=== PATIENT | female | born 1980 | race Caucasian/White ===

== ENCOUNTER → 2020-10-25 01:47 | Outpatient (CLI) | payer BC, SELFPAY ==
[2020-10-25 20:23] LABS: SARS-CoV-2 RNA PCR Negative
== END ==
PROVIDERS: PCP Family Medicine; Visit Provider Obstetrics & Gynecology
DX: Z01.812 Encounter for preprocedural laboratory examination (principal); Z20.822 Contact with and (suspected) exposure to COVID-19
CPT/HCPCS: C9803; U0003; U0005

== ENCOUNTER 2020-10-27 10:16 | Outpatient (CLI) | payer BC, SELFPAY ==
--- NOTE | 2020-10-27 10:22 | ECG_ITS ---
Measurements Intervals [place] Rate: 62 P: 33 FL: 123 QRS: 55 QRSD: 81 T: 22 QT: 409 QTc: 416 Interpretive Statements SINUS RHYTHM BASELINE ARTIFACT- I, II, III, AVR, AVL, AVF, V1-V6 NORMAL ECG Electronically Signed On 10-27-2020 10:39:42 CDT by Bautista Green D.O.
[2020-10-27 11:06] LABS: Anion Gap 6 mmol/L (8-16); Blood Urea Nitrogen 16 mg/dL (7-17); Calcium 8.9 mg/dL (8.4-10.2); Carbon Dioxide 31 mmol/L (22-30); Chloride 101 mmol/L (98-107); Estimated Glomerular Filt Rate > 60; Glucose 83 mg/dL (65-105); Potassium 3.8 mmol/L (3.4-5.0); Sodium 138 mmol/L (137-145)
== END 2020-10-27 10:17 | disposition home or self-care (01) ==
LOC: ANHSURGERY 10:19
PROVIDERS: Anesthesiology; PCP Family Medicine; Visit Provider Obstetrics & Gynecology
DX: E78.00 Pure hypercholesterolemia, unspecified (principal); I10 Essential (primary) hypertension; Z79.899 Other long term (current) drug therapy; Z01.818 Encounter for other preprocedural examination
CPT/HCPCS: 36415; 80048; 93005

== ENCOUNTER 2020-10-29 00:29 | Day surgery (SDC) | payer BC, SELFPAY ==
[2020-10-20 15:05] VITALS: BMI 19.5
--- NOTE | 2020-10-28 15:40 | WPDANESEPPF ---
Anes - Initial Pre Proc Eval Procedure: Operation Date: 10/29/20 12:00 Proposed Procedures p Laparoscopic Bilateral Tubal Sterilization with Fallopian Rings, - Cristiano Miller MD s Hysteroscopy, Dilation and Curettage with Ronda Ablation, Removal Intra Uterine Device - Cristiano Miller MD Date/Time: 10/28/20 15:40 Surgeon: Cristiano Miller MD Pre Op Diagnosis: desires sterilization, irregular bleeding, dysmeno Patient Data Age: 40 Gender: F Height: 1.52 m Weight: 45.3 kg Allergies Allergy/AdvReac Type Severity Reaction Status Date / Time Sulfa (Sulfonamide Allergy Intermediate Nausea and Verified 10/20/20 15:04 Antibiotics) Vomiting Home Medications Medication Instructions Recorded Confirmed Type escitalopram oxalate 20 mg PO DAILY 10/20/20 10/20/20 History hydrochlorothiazide 25 mg PO DAILY 10/20/20 10/20/20 History simvastatin 20 mg PO DAILY 10/20/20 10/20/20 History Patient hx anesthesia problems: none Family hx anesthesia problems: none REPLACED BY [facility] Past Medical History Medical History (Updated 10/28/20 @ 15:40 by Beau Hopkins MD) Anxiety HTN (hypertension) Hypercholesterolemia Social History Social History Smoking status: Never smoker Alcohol intake: current Alcohol use details: SOCIAL - ONCE/MONTH Substance use: never Substance use type: does not use Living arrangements: with family Spiritual care concerns: No Anes - Eval Final PreProcedure Day of Procedure 10/28/20 15:40 Patient weight: normal Heart: regular rate and rhythm Lungs: clear to auscultation and normal air movement Airway: Mallampati scale class II Neurological: alert and oriented Last oral intake: >/= 8 hours ASA classification: II Emergent: no Anesthetic plan: proceed Anesthesia type and monitoring: general ETT Informed Consent: The patient's anesthetic plan and its attendant risks and benefits were discussed with the patient/family/POA. Questions were solicited and answers provided to the satisfaction of the patient/family/POA.
[2020-10-29] VITALS (7 sets, daily range): BP systolic 99–121; BP diastolic 67–86; PULSE 61–68; RESP 12–18; TEMP 36.4–37.2; O2SAT 100
[2020-10-29] MEDS: LACTATED RINGERS 1,000 ML 30 ML IV CONT ×2 (11:05→13:39)
[2020-10-29] MEDS: ACETAMINOPHEN 500 MG TABLET 1000 MG PO (11:06)
[2020-10-29] MEDS: KETOROLAC 15 MG/ML VIAL (*BKC) IV PUSH (11:06)
--- NOTE | 2020-10-29 12:20 | PM.IMHP ---
H&P: HPI History of Present Illness Date/Time: 10/29/20 12:20 40 y/o with a Mirena IUD. She desires permanent contraception as well as surgical treatment of her dysmenorrhea. Chief Complaint: Here for surgery Review of Systems Review of Systems: All systems reviewed & are unremarkable except as noted in HPI and below PMFSH Past Medical History Medical History Anxiety HTN (hypertension) Hypercholesterolemia Social History Social History Smoking status: Never smoker Alcohol intake: current Alcohol use details: SOCIAL - ONCE/MONTH Substance use: never Substance use type: does not use Living arrangements: with family Spiritual care concerns: No Meds Home Medications and Allergies Home Medications Medication Instructions Recorded Confirmed Type escitalopram oxalate 20 mg PO DAILY 10/20/20 10/29/20 History hydrochlorothiazide 25 mg PO DAILY 10/20/20 10/20/20 History simvastatin 20 mg PO DAILY 10/20/20 10/20/20 History Allergies Allergy/AdvReac Type Severity Reaction Status Date / Time Sulfa (Sulfonamide Allergy Intermediate Nausea and Verified 10/29/20 11:22 Antibiotics) Vomiting Vital Signs Vital Signs - 24 hr 10/29/20 11:25 Temperature 37.2 C Pulse Rate 65 Respiratory Rate 18 Blood Pressure 112/83 Pulse Oximetry 100 Exam Const: Orientation/consciousness: patient oriented x3 Other: Well-developed, well-nourished female in no acute distress. Neck: Thyroid: thyroid normal Lymphatic: no lymphadenopathy noted (in neck, axilla or inguinal nodes) Resp: Effort & Inspection: normal respiratory effort Auscultation: clear to auscultation bilaterally Cardio: Rate: regular rate Rhythm: regular rhythm Heart sounds: S1 normal heart sound present and S2 normal heart sound present GI: Other: ABD: Soft, nontender, nondistended. No guarding or rebound tenderness. No hepatosplenomegaly. : General: Yes no CVA tenderness Other: External genitalia: normal female hair distribution, without lesion. Urethral meatus: no lesion, non prolapsed. Bladder: no mass, nontender Vagina: well-estrogenized, without lesion or discharge. No cystocele or rectocele. Cervix: no lesion or discharge. Uterus: small, anteverted, freely mobile, nontender Adnexa: no mass or tenderness. Anus/perineum: no lesions, nontender Back/Spine/Pelvis: Back: no CVA tenderness Skin: General skin exam: normal color and no rashes or lesions noted Neuro: General: patient oriented x3 Extrem: Other: Extremities: nontender with no edema Psych: Mental Status: mental status grossly normal Affect: normal affect Assessment and Plan Assessment and plan (1) Dysmenorrhea: Code(s): N94.6 - Dysmenorrhea, unspecified Status: Acute Assessment and Plan: A: Dysmenorrhea, desired sterility. P: She understands there are temporary methods of contraception available to her. She understands that there are nonsurgical options as well as surgical options. She understands that tubal ligation will render her permanently sterile. She understands that there is a failure rate associated with tubal ligation, as well as an inherent ectopic gestation risk. Furthermore, she understands risks of surgery to include risks of anesthesia, risks of pain, infection, bleeding, blood products, thromboembolic phenomena and damage to adjacent structures such as bowel, bladder, ureters, blood vessels and nerves. She understands all these risks and elects to proceed with laparoscopic bilateral tubal ligation, removal of IUD, hysteroscopy, dilation and sharp curettage, and endometrial ablation. She has received the ACOG pamphlet on surgical sterilization. (2) Unwanted fertility: Code(s): Z30.09 - Encounter for other general counseling and advice on contraception Status: Acute
--- NOTE | 2020-10-29 12:24 | WPDHPUPDATE1 ---
History and Physical Update Update Date/Time: 10/29/20 12:24 History and Physical has been reviewed, including an updated exam of the patient. There are NO changes in the patient's condition. Risks, benefits, and alternatives have been discussed and questions answered. Patient agrees to proceed with procedure.
--- NOTE | 2020-10-29 13:36 | PM.PROC ---
Procedure Note - Detailed Date of procedure: 10/29/20 Pre-op diagnosis: desires sterilization, irregular bleeding, dysmeno Dysmenorrhea Desired sterility Post-op diagnosis: same Procedure performed: Laparoscopic bilateral tubal ligation with Falope rings Removal of IUD Hysteroscopy Dilation and sharp curettage Attempted endometrial ablation Description of procedure: The patient was taken to the operating room where general endotracheal anesthesia was administered. She was prepared and draped in the usual sterile fashion in dorsal lithotomy position. The bladder was drained with a red rubber catheter. A sterile speculum was placed into the vagina. The anterior lip of the cervix was grasped with a single-tooth tenaculum. The acorn uterine manipulator was placed. The speculum was withdrawn. Gloves were changed and attention was turned the abdomen. An infraumbilical skin incision was made with a scalpel. The abdomen was tented and a 5mm bladeless trocar was advanced under direct laparoscopic visualization. Pneumoperitoneum was administered using carbon dioxide gas. A survey of the pelvis and abdomen revealed the findings noted above. A second skin incision was made in the midline above the symphysis pubis and an 8mm bladeless trocar was advanced under direct laparoscopic visualization. The fallopian tube on the right side was followed out to the fimbriated end for identification. It was then grasped in the midportion with the Falope ring applicator. The Falope ring was then applied. A good loop of tube was noted to be distal to the ring. Hemostasis was excellent. The device was reloaded and the contralateral tube was similarly identified and ligated. An excellent application was noted here as well. A total of 4mL of 1% lidocaine was infiltrated into the serosa of the proximal tubes for postoperative anesthesia. The ports were withdrawn. The gas was allowed to escape. The skin incisions were reapproximated using interrupted subcuticular sutures of 4 0 Vicryl. Dermaflex was applied externally. Attention was then redirected to the vagina. The acorn manipulator was withdrawn and the speculum was reintroduced. The Mirena IUD strings were grasped with a ring forceps and the IUD was easily removed, intact, and discarded. Ten mL of 1% lidocaine was administered in a paracervical block. The cervix was then gently dilated using Hegar dilators until an 8 mm dilator could be passed. Hysteroscopy was performed using sterile saline as a distention medium. Findings are as noted above. Sharp curettage was then performed, and endometrial curettings were collected on a Telfa pad and passed off to be sent to pathology. Finally, the the Ronda device was advanced. However, the array would not deploy to a satisfactory width and the balloon would not remain inflated. A second look was taken with the hysteroscope to confirm integrity of the uterine estrada. The uterus was gently sounded again. A second wand was obtained. This time the balloon remained inflated, but the CO2 test phase did not pass. A third look with the hysteroscope again was entirely normal, with no evidence of uterine perforation. Nonetheless, she was given a dose of Ancef 1 g IV to cover for possible perforation, and the procedure was terminated. The tenaculum was removed. Hemostasis was excellent. Sponge, lap, needle and instrument counts were correct. The patient was awakened and taken to the recovery room in stable condition. I was present and scrubbed through the entire procedure. After she had awakened fully, I reviewed the operative course in detail with the patient and her prior to her discharge to home. We reviewed instructions and precautions in detail. Implants: Falope rings Anesthesia: GETA and local (1% lidocaine) Surgeon: Cristiano Miller MD Estimated blood loss (mL): 5 Drains: No Packing: No Pathology: yes (Endometrial curettings) Complications: None Condition: sta
== END 2020-10-29 15:13 | disposition home or self-care (01) ==
PROVIDERS: PCP Family Medicine; Visit Provider Obstetrics & Gynecology
PROC: (CPT 58671; principal; 2020-10-29 12:00)
PROC: 0U5B8ZZ Destruction of Endometrium, Via Natural or Artificial Opening Endoscopic (ICD-10-PCS; CPT 58563; 2020-10-29 12:00)
DX: Z30.2 Encounter for sterilization (principal); N93.9 Abnormal uterine and vaginal bleeding, unspecified; N94.6 Dysmenorrhea, unspecified; N85.8 Other specified noninflammatory disorders of uterus; I10 Essential (primary) hypertension; E78.00 Pure hypercholesterolemia, unspecified; F41.9 Anxiety disorder, unspecified
CPT/HCPCS: 58671; 58563; 58301; 88305; A4264; A9270; J0330; J1100; J1885; J2250; J2405; J2704; J2710; J3010; J7030; J7120

== ENCOUNTER → 2022-08-05 15:10 | Outpatient (CLI) | payer BC, SELFPAY ==
--- NOTE | ~2022-08-05 | MM_ITS ---
EXAMINATION: MM screening [place]ren BI w norma HISTORY: Screening mammogram TECHNIQUE: Craniocaudal and mediolateral oblique 3-D tomosynthesis images were obtained and synthetic 2-D images were generated. CAD analysis was submitted and interpreted. COMPARISON: None, baseline BREAST PARENCHYMAL COMPOSITION: The breasts are heterogeneously dense, which may obscure small masses . FINDINGS: No suspicious mass, calcification, or architectural distortion are identified in either anupama ast to suggest malignancy. IMPRESSION: 1. No mammographic evidence of malignancy. 2. Recommend routine screening mammography in one year. BI-RADS Category 1: Negative Reviewed, dictated and finalized at location A. ING AID TECHNICIAN
== END ==
PROVIDERS: PCP Obstetrics & Gynecology; Visit Provider Obstetrics & Gynecology
DX: Z12.31 Encounter for screening mammogram for malignant neoplasm of breast (principal)
CPT/HCPCS: 77063; 77067

== ENCOUNTER 2023-09-05 14:56 | Outpatient (CLI) | payer BC, SELFPAY ==
--- NOTE | ~2023-09-05 | MM_ITS ---
EXAMINATION: MM screening [place] BI w norma HISTORY: Screening mammogram TECHNIQUE: Craniocaudal and mediolateral oblique 3-D tomosynthesis images were obtained and synthetic 2-D images were generated. CAD analysis was submitted and interpreted. COMPARISON: 08/05/2022 BREAST PARENCHYMAL COMPOSITION: The breasts are heterogeneously dense, which may obscure small masses . FINDINGS: No suspicious mass, calcification, or architectural distortion are identified in either anupama ast to suggest malignancy. There has been no suspicious interval change. IMPRESSION: 1. No mammographic evidence of malignancy. 2. Recommend routine screening mammography in one year. BI-RADS Category 1: Negative Reviewed, dictated and finalized at location A. [facility] SPECIALIST
== END 2023-09-05 14:57 | disposition home or self-care (01) ==
LOC: CHSIMG 14:57
PROVIDERS: PCP Physician Assistant; Visit Provider Obstetrics & Gynecology
DX: Z12.31 Encounter for screening mammogram for malignant neoplasm of breast (principal)
CPT/HCPCS: 77063; 77067

== ENCOUNTER 2024-09-07 15:04 | Outpatient (CLI) | payer BC, SELFPAY ==
--- NOTE | ~2024-09-07 | MM_ITS ---
EXAMINATION: MM screening warren BI w norma HISTORY: Screening TECHNIQUE: Craniocaudal and mediolateral oblique 3-D tomosynthesis images were obtained and synthetic 2-D images were generated. CAD analysis was submitted and interpreted. COMPARISON: Comparison to multiple prior studies sequentially, with oldest reviewed study dated 11/2022. BREAST PARENCHYMAL COMPOSITION: Dense: The breasts are extremely dense, which lowers the sensitivity of mammography. FINDINGS: There is no evidence of suspicious mass, calcification, or architectural distortion to sugg est malignancy in either breast. There has been no suspicious interval change. IMPRESSION: 1. No mammographic evidence of malignancy. 2. Recommend routine screening mammography in one year. BI-RADS Category 1: Negative Reviewed, dictated and finalized at location B. [employer]
--- OUTSIDE RECORDS SUMMARY | 2024-09-07 15:07 | XMS_ITS | Patient Health Summary ---
Author Organization [facility] Address [address] [place] [address] Care Team Providers Care Manager Government Name Role Phone Unavailable Primary Care Provider Unavailabl e Note from [facility],non-owned Affiliates and Associated Physician Practices is amultiple site organization consisting of ambulatory clinics and hospital sitesin [place], [place], [place] and [place]. This disclosure is being madepursuant to the Care Everywhere program and may not contain all information available regarding this patient. Last updated 18.[facility] Allergies * Sulfa Drugs Medications * Be aware that medications may not be up to date on this document. Alwaysverify current medications with the patient. * escitalopram (LEXAPRO) 10 MG tablet(Started 12/02/2008) Take 1 Tab by mouth daily. Active Problems Problem Noted Date Diagnosed Date Chronic hypertension in 09/17/2011 History of urinary calculi 09/17/2011 Previous delivery, antepartum condition or complication 09/17/2011 Previous delivery, antepartum 09/17/2011 Affective disorder 09/17/2011 Family history of hypertension 09/17/2011 Social History Tobacco Use Types Packs/Day Years Used Date Smoking Tobacco: Never Assessed Sex and Gender Information Value Date Recorded Sex Assigned at Not on file Gender Identity Not on file Sexual Orientation Not on file Procedures * LAB RESULTS ORDER(Performed 02/28/2012) * SONOGRAM - COMPLETE(Performed 09/17/2011) Performed for Other pre-existing hypertension, antepartum (HCC), Poor growth, affecting management of mother, antepartum condition or complication (HCC), with other poor obstetric history (HCC) * XR TIBIA FIBULA RIGHT 2VW(Performed 03/09/2007) Performed for Localized Superficial Swelling, Mass, or Lump * GROSS EXAM PATHOLOGY(Performed 04/21/2004) * GROSS + MICRO EXAM(Performed 11/19/2003) Results * LAB RESULTS ORDER (02/28/2012 3:09 PM CDT) Narrative Transcriptions Document, Scanned - 02/28/2012 3:08 PM CDT Scanned Document LAB - THERAPEUTIC DR VELASQUEZ MONITORING ORDERABLES * SONOGRAM - COMPLETE (09/17/2011 1:24 PM HOG ROOM SUPERVISOR) Anatomical Region Laterality Modality Other 09/17/2011 1:24 PM HOG ROOM SUPERVISOR Narrative 09/17/2011 6:26 PM HOG ROOM SUPERVISOR [facility]IC[facility] FAX: Pat. Name: TINA VALDEZSandie Velazco Pat. No: [id number] Study Date: 09/17/2011 1:24pm , Age: 07 1980, 31 LMP: Unknown GA by US: 29.3 weeks GA Selected: 32.4 weeks (From Known E) LINA: 11/09/2011 Referring MD: Cristiano Miller M.D. Structural Steel Fitter: Lulu Ravi RDMS Room Number: Saturnino Hist/Ind: HTN MEASUREMENTS & AGE GROWTH EVALUATION Measurement GA Range Source %for GA Ratios ---- ------- ------- BPD 7.0 cm 28.3 (26.1-30.5) Hadlock BPD <05 FL/BPD 0.78 (0.71 - 0.87) HC 27.6 cm 30.1 (27.1-33.1) [place] HC 16% FL/AC 0.21 (0.20 - 0.24) AC 26.3 cm 30.4 (27.4-33.4) [place] AC 20% HC/AC 1.05 (0.95 - 1.14) FL 5.5 cm 28.9 (26.8-31.0) Hadlock FL <05 CI 0.69 (0.70 - 0.86* GA for sonogram 29.3 wk (27.4-31.1) Weight Estimate: based on (HC,AC,FL) [place]lock Weight: 1449 gm (7214-3482) Hadlo : 3lbs, 3oz Normal: 1896 gm (4017-1425) Brenn Wt% 15% for 32.4 wks Amniotic Fluid Index: 09.7 (08.5-24.3) Biophysical Profile: 03/10 Breathin Tone: 2 NST: 0 Movement: 2 AFV: 2 CLINICAL SUMMARY There is a cummins breech fetus with normal amniotic fluid volume. The biometry is consistent with menstrual age; however, the biometry overall is symmetrically somewhat small. The placenta is posterior and not low-lying. The anatomy screen is incomplete (see above). No structural abnormalities are evident today. gender is female. No maternal adnexal abnormalities are apparent. The umbilical artery doppler study is normal and the uterine artery doppler study is normal with mean PI of 1.15 and no significant notching. A biophysical profile was reassuring. See consult note for recommendations. Lio Rockwell MD <Electronic Signature> 09/17/2011 06:26pm Cristiano Miller MD [facility] ORDERABLES * XR TIBIA AND FIBULA 2 VW RIGHT (03/09/2007 10:21 AM CDT) Anatomical Region Laterality Modality Lower Extremity Other 03/09/2007 10:2 1 AM CDT Impressions 03/09/2007 11:57 AM CDT - NEGATIVE RADIOGRAPHS OF THE RIGHT TIBIA AND FIBULA. Reading RadiologistSujatha DIAZ MD Releasing Maycol DIAZ MD Released Date Time- 03/09/07 1700 Merchandising Internship- ML -- ADM- GIRMA JOSEPH II ATT- GIRMA JOSEPH II REF- GIRMA JOSEPH II CON- PCP- MART HAHN SCP- IMPRESSION Narrative 03/09/2007 11:57 AM CDT RIGHT TIBIA AND FIBULA, 2 VIEWS HISTORY- The patient had a benign bone tumor removed. The patient is asymptomatic. No comparison exams or reports are available to me at this institution at the time of interpretation. These films fail to demonstrate fracture, dislocation, or other osseous abnormality. Procedure Note 03/09/2007 RIGHT TIBIA AND FIBULA, 2 VIEWS HISTORY- The patient had a benign bone tumor removed. The patient is asymptomatic. No comparison exams or reports are available to me at this institution at the time of interpretation. These films fail to demonstrate fracture, dislocation, or other osseous abnormality. IMPRESSION- NEGATIVE RADIOGRAPHS OF THE RIGHT TIBIA AND FIBULA. Reading RadiologistSujatha DIAZ MD Releasing Radiologist- LYDIA DIAZ MD Released Date Time- 03/09/07 1700 Merchandising Internship- ML ADM- GIRMA JOSEPH II ATT- GIRMA JOSEPH II REF- GIRMA JOSEPH II CON- PCP- MART HAHN SCP- IMPRESSION Girma Joseph II, MD DIAGNOSTIC IMAGING ORDERABLES * GROSS EXAM PATHOLOGY (04/21/2004 12:55 PM CDT) Result CASE NUMBER [id number] Comment: ORDERING PHYSICIAN YVROSE SALDIVAR SPECIMEN TYPE Calculus/Stone-left ureteral Preop Dx Calculus of ureter Postop Dx None given Clinical Findings None given GROSS DESCRIPTION In a container labeled left ureteral calculi are multiple contreras/high urinary tract calculi up to 0.4 cm maximum. Submitted for analysis. ([facility])lmq Grossed by Juan Antonio Maravilla M.D. DIAGNOSIS Urinary tract calculi (see crystallographic analysis report) Read by Juan Antonio Maravilla M.D. Released By Juan Antonio Maravilla M.D. MISCELLANEOUS SAMPLES / Unknown 04/21/2004 12:55 PM CDT 04/21/2004 12:55 PM CDT Historical Provider LAB - PATHOLOGY/C YTOLOGY ORDERABLES * GROSS + MICRO EXAM (11/19/2003 8:16 AM CDT) Result CASE NUMBER [id number] Comment: ORDERING PHYSICIAN ROLA LORENZANA SPECIMEN TYPE Placenta Twin Date 11/19/2003 Physician Chinmay Gross Description Received, fresh, labeled `twin placenta' and consists of a dichorionic diamniotic placenta, one of which has an umbilical cord attached and one does not. The one with the umbilical cord attached is designated A, and the other as B. The two placentas are joined by a thin membrane, however the two placental parenchyma's are separate. Placenta A consists of a discoid placenta with which membranes and umbilical cord removed weighs 200 gms. And measures 20.5 x 15 x 1.5 cm. The umbilical cord is white yellow, attaches marginally and measures 4.5 cm in length x up to 1.5 cm in diameter. The cut surface of the umbilical cord reveals three vessels. Additionally included with this specimen is a detached segment of umbilical cord and is not designated which placenta it belongs to. This segment of the umbilical cord measures 12.0 cm in length x up to 1.5 cm in diameter. This segment of cord is yellow white, the cut surface reveals three vessels. The membranes for placenta A attach marginally, are thin, membranous, high and translucent. The surface is firm, glistening and light blue with tortuous vessels coursing beneath the amniochorion. The maternal surface is dull red to contreras with fragmented cotyledons, contains no retroplacental hematoma. The cut surface reveals no areas of fibrin deposition or no areas of infarct or necrosis. Farm Products Shipper sections submitted of placenta A are submitted as follows A- retail representative sections submitted of membranes, and umbilical cord. B-sections of placenta from cord attachement site, C-random section of placenta maternal surface. D-retail representative sections of membranes where two placentas are attached. Placenta B is a discoid placenta with membranes and umbilical cord removed weighs 160 gms., and measures 18.5 x 14 x 1.5 cm. There is no umbilical cord attached to this placenta. The membranes are attached marginally, are thin, membranous and high, translucent. The membranes are firm, glistening, light blue with tortuous vessels coursing beneath the amnion chorion. The maternal surface is dull red to contreras with some fragmented cotyledons and contains no retroplacental hematoma. The cut surface reveals no areas of fibrin deposition with no evidence of infarction or necrosis. Farm Products Shipper sections submitted of placenta B are submitted as follows E-sections of membranes,, F-random section of placenta at surface, G- random section placenta at maternal surface. /[facility] Microscopic Exam Sections of the umbilical cord from the placenta designated as A demonstrate a three vessel cord. There is some mild focal acute inflammation in the vessels of the umbilical cord. Sections of the membranes do not show evidence of acute or chronic inflammation. Sections of placenta A show some degree of immature villi which is consistent with the placental weight. The decidual plate contains a few polymorphonuclear cells, however there is no evidence of villitis. There is also no evidence of infarction or fibrin deposition. Sections of membranes connecting the two placentas demonstrate unremarkable amnion and chorion. Sections of the membranes from placenta B are unremarkable. There is no evidence of acute or chronic inflammation. No umbilical cord was included with this placenta. Sections of placenta B demonstrate some degree of immature villi which is consistent with placental weight. There is no evidence of villitis or infarction. OI/bk Diagnosis I. Placenta A -- Umbilical cord 1. Mild focal funisitis, three vessels cord -- membranes 1. No pathologic diagnosis -- Placenta 1. No pathologic diagnosis II. Placenta B -- membranes 1. No pathologic diagnosis -- Placenta 1. No pathologic diagnosis III. Placenta, twin -- Diamniotic-dichorionic twin placenta OI/bk RT Merchandising Internship bk Pathologist Mickey Rico M.D. [place]. 11/20/2003 1230 <1> CPT code 42439 x2 MISCELLANEOUS SAMPLES / Unknown 11/19/2003 8:16 AM CDT 11/19/2003 8:16 AM CDT Historical Provider LAB - PATHOLOGY/C YTOLOGY ORDERABLES
--- OUTSIDE RECORDS SUMMARY | 2024-09-07 15:07 | XMS_ITS | Referral Summary ---
Author Organization [facility] Address [address] [place] [address] Care Team Providers Care Perforator Name Role Phone Unavailable Primary Care Provider Unavailabl e Source Comments [facility],non-owned Affiliates and Associated Physician Practices is amultiple site organization consisting of ambulatory clinics and hospital sitesin [place], [place], [place] and [place]. This disclosure is being madepursuant to the Care Everywhere program and may not contain all information available regarding this patient. Last updated 18.[facility] [employer] Allergies Active Allergy Reactions Criticality Noted Date Comments Sulfa Drugs 03/01/2008 Medications * Be aware that medications may not be up to date on this document. Alwaysverify current medications with the patient. Medication Sig Dispensed Refills Start Date End Date Status escitalopram (LEXAPRO) 10 MG tabletIndications:Gener alized anxiety disorder Take 1 Tab by mouth daily. 30 0 12/02/2008 Active Active Problems Problem Noted Date Diagnosed Date [...] on file Sexual Orientation Not on file Plan of Treatment Not on file
--- OUTSIDE RECORDS SUMMARY | 2024-09-07 15:07 | XMS_ITS | Clinical Summary ---
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 This disclosure is being madepursuant to the Care Everywhere program and may not contain all information available regarding this patient. Last updated 18.[facility] Allergies Active Allergy Reactions Criticality Noted Date [...] disorder 09/17/2011 Family history of hypertension 09/17/2011 Family History Medical History Relation Name Comments Hypertension Father Relation Name Status Comments Father Social History Tobacco Use Types Packs/Day Years Used Date Smoking Tobacco: Never Assessed Sex and Gender Information Value Date Recorded Sex Assigned at Not on file Gender Identity Not on file Sexual Orientation Not on file Plan of Treatment Health Maintenance Due Date Last Done Comments LIPID TESTING 1981 MAMMOGRAM 1981 PAP SMEAR 1981 HIV SCREENING 02/14/1996 HEPATITIS C SCREENING 02/09/1999 DTAP/TDAP/TD VACCINES (1 - Tdap) 02/14/2000 HEPATITIS B VACCINE (1 of 3 - 19+ 3-dose series) 02/14/2000 COVID-19 VACCINE (1 - 2023-2 5 season) 2024 INFLUENZA VACCINE (#1) 2024 DEPRESSION SCREENING 08/01/2024 ZOSTER VACCINE (1 of 2) 2031 HIB VACCINE Aged Out No longer eligi ble based on patient's age to complete this topic HPV VACCINE Aged Out No longer eligi ble based on patient's age to complete this topic MENINGOCOCCAL (Group B) VACCINE Aged Out No longer eligible based on patient's age to complete this topic MENINGOCOCCAL VACCINE Aged Out No ranjit sarah eligible based on patient's age to complete this topic PNEUMOCOCCAL VACCINE Aged Out No long er eligible based on patient's age to complete this topic
--- OUTSIDE RECORDS SUMMARY | 2024-09-07 15:07 | XMS_ITS | Clinical Summary ---
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 Name Role Phone Unavailable Primary Care Provider Unavailabl e Social History Tobacco Use Types Packs/Day Years Used Date Smoking Tobacco: Never Assessed Comments Unknown Sex and Gender Information Value Date Recorded Sex Assigned at Not on file Legal Sex Female 7:30 PM CDT Gender Identity Not on file Sexual Orientation Not on file Plan of Treatment Health Maintenance Due Date Last Done Comments Cervical Cancer Screening Pa p Smear (Age 30 to 64) Every 3 Years 1981 Annual Physical 02/14/1984 Hepatitis C 1999 DTaP, Tdap and Td Vaccines ( 1 - Tdap) 02/14/2000 Hepatitis B Vaccines (1 of 3 - 19+ 3-dose series) 02/14/2000 Cervical Cancer Screening Pa p with HPV Testing (Age 30 to 64) Every 5 Years 2011 Cervical Cancer Screening with HPV 2011 Mammogram Screening 2021 COVID-19 Vaccine ( - 2023-2 5 season) 2024 Influenza Adult (#1) 2024 HPV Vaccines Aged Out No longer eligi ble based on patient's age to complete this topic Meningococcal B Vaccine Aged Out No l onger eligible based on patient's age to complete this topic Meningococcal Vaccine Aged Out No ranjit sarah eligible based on patient's age to complete this topic Pneumococcal Vaccine: Pediat rics (0 to 5 Years) and At-Risk Patients (6 to 64 Years) Aged Out No longer eligible b ased on patient's age to complete this topic RSV Immunizations Under 20 Months Aged Out No longer eligible based on patient's age to complete this topic
== END 2024-09-07 15:05 | disposition home or self-care (01) ==
LOC: CHSIMG 15:05
PROVIDERS: PCP Physician Assistant; Visit Provider Obstetrics & Gynecology
DX: Z12.31 Encounter for screening mammogram for malignant neoplasm of breast (principal)
CPT/HCPCS: 77063; 77067